=== PATIENT | male | born 1970 | race Asian ===

== ENCOUNTER 2016-12-08 18:51 | Emergency (ER) | payer OTHER ==
[2016-12-08 19:31] LABS: ABSOLUTE BASOPHIL COUNT 0 /CUMM (0.0-0.2); ABSOLUTE EOSINOPHIL COUNT 0.3 /CUMM (0.0-0.7); ABSOLUTE MONOCYTE COUNT 0.5 /CUMM (0.10-0.60); BASOPHIL % 0.4 % (0.0-2.0); EOSINOPHIL % 3.4 % (0-5); GRANULOCYTE % 70.8 % (42.2-75.2); HEMATOCRIT 43.3 % (42-52); MEAN CORPUSCULAR HGB CONC 30.7 G/DL (33.0-37.0); MEAN CORPUSCULAR VOLUME 68.4 FL (80.0-94.0); MEAN PLATELET VOLUME 8.2 FL (7.4-10.4); PLATELET COUNT 245 /CUMM (130-400); RED BLOOD CELL CT 6.33 /CUMM (4.70-6.10); WHITE BLOOD CELL COUNT 9.8 /CUMM (4.8-10.8)
[2016-12-08 21:01] VITALS: BP 148/88
--- NOTE | 2016-12-08 21:17 | ED GI/GU/ABDOMINAL COMPLAINT ---
History of Present Illness General Chief Complaint: Chest Pain Stated Complaint: CHEST PAIN, SENT BY URGENT CARE PER PT Source: patient Exam Limitations: no limitations Vital Signs & Intake/Output Vital Signs & Intake/Output Vital Signs Date Time Temp Pulse Resp B/P Pulse O2 O2 Flow FiO2 Ox Delivery Rate 12/08 2100 96.4 82 16 148/88 98 Room Air 12/08 1910 83 22 186/105 97 Room Air Allergies Coded Allergies: No Known Allergies (12/08/16) Triage Note: PER PT CHEST PAIN X 90 MINUTES, WENT TO URGENT CARE. AND WAS SENT HERE PT REPORTS PAIN BETTER NOW, PT STATES HE HAD A WHOLE CARDIAC WORK UP 3 MONTHS AGO Triage Nurses Notes Reviewed? yes HPI: Patient resents the ER with complaints of epigastric and lower chest pain that radiates to the mid back associated with mild nausea that was a fairly sudden onset at around 2:30 PM today that lasted about an hour, pain was a 6 out of 10. He had history of same about a week ago. He had beef and cabbage for lunch today. He was seen at a walk-in center and EKG was taken and he was sent to the ER for further evaluation for possible workup of chest pain. Coincidentally, patient saw Dr. Felder proximally 2 months ago for a cardiac workup as there is a family history of heart disease, his mother. He was not having any symptoms of cardiac disease but because of his family history he had a EKG and stress test which were normal. He is asymptomatic at this time has no complaints. (LANA JAIME) Past History Travel History Traveled to [place] past 21 day No Medical History Any Pertinent Medical History? see below for history Neurological: NONE EENT: NONE Cardiovascular: HIGH CHOL Respiratory: NONE Gastrointestinal: NONE Hepatic: NONE Renal: NONE Musculoskeletal: NONE Psychiatric: NONE Endocrine: NIDDM Surgical History Surgical History: appendectomy Psychosocial History What is your primary language Monegasque Tobacco Use: Never used Family History Hx Contributory? Yes (MOTHER, CAD) (LANA JAIME) Review of Systems Review of Systems Constitutional: Reports: see HPI. EENTM: Reports: no symptoms. Respiratory: Reports: no symptoms. Cardiovascular: Reports: see HPI. GI: Reports: see HPI. Genitourinary: Reports: no symptoms. Musculoskeletal: Reports: no symptoms. Skin: Reports: no symptoms. Neurological/Psychological: Reports: no symptoms. Hematologic/Endocrine: Reports: no symptoms. Immunologic/Allergic: Reports: no symptoms. All Other Systems: Reviewed and Negative (LANA JAIME) Physical Exam Physical Exam Respiratory: normal breath sounds, chest non-tender, no respiratory distress Cardiovascular: regular rate/rhythm Gastrointestinal: normal bowel sounds, soft, no organomegaly, VERY MINIMAL TENDERNESS IN THE RIGHT UPPER QUADRANT AREA WITH Cardenas SIGN Comments: Well-developed well-nourished no apparent distress. HEENT: Atraumatic, extraocular motion intact Neck: Supple, no lymphadenopathy Back: Nontender Respiratory: No respiratory distress Extremities: No edema, full range of motion Neuro: Alert and oriented x3 Psych: Mood affect normal, normal memory normal judgment. Skin: Warm and dry, no rash on exposed skin Core Measures ACS in differential dx? Yes Severe Sepsis Present: No Septic Shock Present: No (LANA JAIME) Progress Differential Diagnosis: AAA, AMI, appendicitis, biliary colic, bowel obstruction , colon cancer, cholecystitis, diverticulitis, epididymitis, esophageal varices, gastritis, hepatitis, hernia, hemorrhoids, ischemic bowel, inflamm bowel dis, Khushbu-Nichole tear, orchitis, pancreatitis, prostatitis, peptic ulcer, PUD/GERD, perforated viscous, pyelonephritis, SBO, STD, testicular torsion, ureterolithiasis, urinary retention, urethritis, UTI/pyelo Plan of Care: Orders Procedure Date/time Status TROPONIN LEVEL 12/08 1906 Complete COMPREHENSIVE METABOLIC PANEL 12/08 1906 Complete CBC WITHOUT DIFFERENTIAL 12/08 1906 Complete EKG 12/08 185 Active Laboratory Tests 12/08/161909: Anion Gap 12, Estimated GFR > 60, BUN/Creatinine Ratio 22.0, Glucose 115 H, Calcium 9.6, Total Bilirubin 0.7, AST 102 H, ALT 86 H, Alkaline Phosphatase 76 , Troponin I < 0.01, Total Protein 7.8, Albumin 4.6, Globulin 3.2, Albumin/ Globulin Ratio 1.4, CBC w Diff NO MAN DIFF REQ, RBC 6.33 H, MCV 68.4 L, MCH 21.0 L, RDW 17.0 H, MPV 8.2, Gran % 70.8, Lymphocytes % 20.4 L, Monocytes % 5.0, Eosinophils % 3.4, Basophils % 0.4, Absolute Granulocytes 7.0 H, Absolute Lymphocytes 2.0, Absolute Monocytes 0.5, Absolute Eosinophils 0.3, Absolute Basophils 0, PUBS MCHC 30.7 L Initial ED EKG: NSR, rate (80), no ST T wave changes Prior EKG: unchanged Rhythm Strip: normal sinus rhythm Comments: EKG from the urgent care reviewed from earlier today which was unremarkable, unchanged from previous EKG. Patient has elevated LFTs mildly and epigastric pain after eating that radiates to the mid back, I'm concerned of gallbladder disease. Unfortunately I do not have ultrasound at our facility at this time and do not feel patient requires a CT scan as above the 50% of gallbladder diseases are missed on CAT scan. I do not feels that he has an infection. Recommend bland diet and ultrasound as outpatient, he is given a prescription for this. He is to return with severe abdominal pain Nausea vomiting or fever. I do not feel symptoms are cardiac related and he just had a cardiac stress test 2 months ago which was negative. (LANA JAIME) Departure Departure Disposition: HOME OR SELF CARE Condition: Stable Clinical Impression Primary Impression: Biliary colic Secondary Impressions: Transaminitis Referrals: FELIPE BORDEN,LYNNE Kellogg (PCP/Family) TRINH BORDEN,RAE Zamarripa. Additional Instructions: Please call for an ultrasound at your earliest convenience, do not eat or drink anything for hours before the test. Please follow up with general surgery after completion of the ultrasound. [place] nonfatty foods. Return to the ER with severe pain, nausea, vomiting or fever. Departure Forms: Customer Survey General Discharge Information (LANA JAIME) PA/CAT OPERATOR Co-Sign Statement Statement: ED Attending supervision documentation- [] I saw and evaluated the patient. I have also reviewed all the pertinent lab results and diagnostic results. I agree with the findings and the plan of care as documented in the PA's/CAT OPERATOR's documentation. x I have reviewed the ED Record and agree with the PA's/CAT OPERATOR's documentation. [] Additions or exceptions (if any) to the PAs/CAT OPERATOR's note and plan are summarized below: [] (MARIIA BORDEN,SOTERO)
== END 2016-12-08 21:30 ==
LOC: ERH 18:51
PROVIDERS: Physician Assistant Surgical
DX: K80.50 Calculus of bile duct without cholangitis or cholecystitis without obstruction (principal); R74.0 Nonspecific elevation of levels of transaminase and lactic acid dehydrogenase [LDH]; R07.9 Chest pain, unspecified
CPT/HCPCS: 93005; 93010